=== PATIENT | female | born 1995 | race Caucasian/White ===

== ENCOUNTER 2024-12-30 02:49 | Emergency (ER) | payer SELFPAY | END 2024-12-30 07:18 | disposition home or self-care (01) | LOC: NAV ERS 02:49 → EDBD 02:49 → NAV ERS 07:18 | DX: F10.129 Alcohol abuse with intoxication, unspecified (principal); Y90.9 Presence of alcohol in blood, level not specified | CPT/HCPCS: 99284; J7030 ==